=== PATIENT | female | born 1980 | race American Indian/Alaskan Native ===

== ENCOUNTER 2017-05-23 08:39 | Emergency (ER) | payer SELFPAY ==
[2017-05-23 09:26] VITALS: BP 132/82
[2017-05-23 10:23] LABS: Bacteria,Urine 1+ /HPF (Negative); Bilirubin,Urine NEG (Negative); Blood,Urine NEG (Negative); Ketones,Urine NEG (Negative); Leukocyte Esterase,Urine NEG (Negative); Mucus,Urine FEW /HPF; Nitrite,Urine NEG (Negative); Protein,Urine <15 mg/dL mg/dL (Negative); Urobilinogen,Urine < 2.0 mg/dL (<2.0); WBC,Urine < 1.0 /HPF (0.0-6.0)
[2017-05-23] MEDS ORDERED: TORADOL IM ONE (10:43)
--- NOTE | 2017-05-23 18:43 | Emergency Department Report ---
Entered by ZO LOERA, acting as scribe for KEILA WAGGONER NP. ED Back Pain/Injury HPI - General Chief Complaint: Back Pain/Injury Stated Complaint: LOW BACK/LT SIDE PAIN Time Seen by Provider: 05/23/17 10:01 Source: patient Limitations: No Limitations - History of Present Illness Initial Comments: This a 33 y/o female, nontoxic, well nourished in appearance, no acute signs of distress with a PMHx of HTN presents with c/o low back pain that began 3 days ago, worsening yesterday. Rates pain a 10/10 in severity, which she describes aching. Aggravated with movement and alleviated with immobilization. Reports the pain radiates to her right and left leg. Patient reports left side pain, but she denies urinary/bowel incontinence, dysuria, hematuria, fever, chills, chest pain, SOB, FREDERICK or dizziness, stiff neck, numbness, tingling. Notes Hx of similar intermittent back pain episodes, but she states this episode is worse. NKDA. Denies any trauma. Denies PMH. MD Complaint: back pain (low) Onset/Timin -: days(s) Similar Symptoms Previously: Yes Place: home Radiation: left leg, right leg Severity: severe Severity scale (0 -10): 10 Quality: aching Consistency: constant Improves With: immobilization Worsens With: movement Context: other (Hx intermittent back pain) Associated Symptoms: denies other symptoms. denies: confusion, weakness, chest pain, numbness, difficulty walking, cough, difficulty urinating, diaphoresis, incontinence, fever/chills, constipation, headaches, abdominal pain, loss of appetite, malaise, nausea/vomiting, rash, seizure, shortness of breath, syncope - Related Data Previous Rx's Medication Instructions Recorded Last Taken Type Metoprolol [Lopressor TAB] 12.5 mg PO DAILY #15 tablet 09/16/14 Unknown Rx Omeprazole Magnesium [Prilosec Otc] 20 mg PO QDAY #30 tablet. 09/16/14 Unknown Rx methylPREDNISolone [Medrol] 4 mg PO QAM #1 tab.ds.pk 06/28/16 Unknown Rx predniSONE [Deltasone] 50 mg PO QDAY #5 tab 06/28/16 Unknown Rx Ibuprofen [Motrin 600 MG tab] 600 mg PO Q8H PRN #20 tablet 05/23/17 Unknown Rx predniSONE [Deltasone] 20 mg PO BID #10 tab 05/23/17 Unknown Rx Allergies Allergy/AdvReac Type Severity Reaction Status Date / Time No Known Allergies Allergy Verified 09/15/14 13:59 ED Review of Systems Comment: All other systems reviewed and negative Constitutional: denies: chills, fever, malaise Eyes: denies: eye pain, eye discharge, vision change ENT: denies: ear pain, throat pain Respiratory: denies: cough, orthopnea, shortness of breath, SOB with exertion, SOB at rest, stridor, wheezing Cardiovascular: denies: chest pain, palpitations Endocrine: no symptoms reported Gastrointestinal: denies: abdominal pain, nausea, vomiting, diarrhea Genitourinary: denies: urgency, dysuria, frequency, hematuria, discharge Musculoskeletal: back pain (low back). denies: joint swelling, arthralgia Skin: denies: rash, lesions Neurological: denies: headache, weakness, numbness, paresthesias Psychiatric: denies: anxiety, depression Hematological/Lymphatic: denies: easy bleeding, easy bruising ED Past Medical Hx - Past Medical History Previous Medical History?: Yes Hx Hypertension: Yes - Surgical History Past Surgical History?: Yes Hx Cholecystectomy: Yes Hx Appendectomy: Yes Additional Surgical History: Tonsillectomy - Social History Smoking Status: Current Every Day Smoker Substance Use Type: Alcohol, Non Opiate Pain, Prescribed - Medications Home Medications: Home Medications Medication Instructions Recorded Confirmed Last Taken Type Metoprolol [Lopressor TAB] 12.5 mg PO DAILY #15 tablet 09/16/14 Unknown Rx Omeprazole Magnesium [Prilosec Otc] 20 mg PO QDAY #30 tablet.dr 09/16/14 Unknown Rx methylPREDNISolone [Medrol] 4 mg PO QAM #1 tab.ds.pk 06/28/16 Unknown Rx predniSONE [Deltasone] 50 mg PO QDAY #5 tab 06/28/16 Unknown Rx Ibuprofen [Motrin 600 MG tab] 600 mg PO Q8H PRN #20 tablet 05/23/17 Unknown Rx predniSONE [Deltasone] 20 mg PO BID #10 tab 05/23/17 Unknown Rx ED Physical Exam - General Limitations: No Limitations General appearance: alert, in no apparent distress - Head Head exam: Present: atraumatic, normocephalic, normal inspection - Eye Eye exam: Present: normal appearance, PERRL, EOMI. Absent: scleral icterus, conjunctival injection, nystagmus, periorbital swelling, periorbital tenderness Pupils: Present: normal accommodation - ENT ENT exam: Present: normal exam, normal orophraynx, mucous membranes moist, TM's normal bilaterally, normal external ear exam - Neck Neck exam: Present: normal inspection, full ROM. Absent: tenderness, meningismus, lymphadenopathy, thyromegaly - Respiratory Respiratory exam: Present: normal lung sounds bilaterally. Absent: respiratory distress, wheezes, rales, rhonchi, stridor, accessory muscle use, decreased breath sounds - Cardiovascular Cardiovascular Exam: Present: regular rate, normal rhythm, normal heart sounds. Absent: bradycardia, tachycardia, irregular rhythm, systolic murmur, diastolic murmur, rubs, gallop - GI/Abdominal GI/Abdominal exam: Present: soft, normal bowel sounds. Absent: distended, tenderness, guarding, rebound, rigid - Rectal Rectal exam: Present: deferred - Extremities Exam Extremities exam: Present: normal inspection, full ROM, normal capillary refill. Absent: tenderness, pedal edema, joint swelling, calf tenderness - Back Exam Back exam: Present: normal inspection, full ROM, tenderness (lumbar paraspinal tenderness), paraspinal tenderness (lumbar). Absent: CVA tenderness (R), CVA tenderness (L), muscle spasm, vertebral tenderness, rash noted - Neurological Exam Neurological exam: Present: alert, oriented X3, CN II-XII intact, normal gait, reflexes normal. Absent: motor sensory deficit - Psychiatric Psychiatric exam: Present: normal affect, normal mood - Skin Skin exam: Present: warm, dry, intact. Absent: rash ED Course Vital Signs 05/23/17 09:23 Temperature 98.1 F Pulse Rate 82 Respiratory 20 Rate Blood Pressure 132/82 O2 Sat by Pulse 100 Oximetry - Reevaluation(s) Reevaluation #1: 05/23/17 10:56 Patient is able to speak in full sentences with no signs of distress noted. ED Medical Decision Making - Medical Decision Making Ed course: This is a 37-year-old female that presents with lumbar strain 1- patient was examined by myself. UA has been obtained with normal findings. Negative CVA tenderness. Denies hx of kidney stones. Denies urinary symptoms. Symptoms are consistent with lumbar strain. Patient was treated in the ED with solu-medorl and toradol IM in the ED. Patient will be d/c with prednisone and ibuprofen. Patient was instructed to follow-up with her primary care doctor 3- 5 days or if symptoms such as numbness, tingling, fever, chills, stiff neck, nausea or vomiting chest pain, shortness of breath return to emergency room as soon as possible. At time time of discharge, the patient does not seem toxic or ill in appearance. No acute signs of distress noted. Patient agrees to discharge treatment plan of care. No further questions noted by the patient. ED Disposition Clinical Impression: Low back strain Qualifiers: Encounter type: initial encounter Qualified Code(s): S39.012A - Strain of muscle, fascia and tendon of lower back, initial encounter Disposition: TO HOME OR SELFCARE Is pt being admited?: No Does the pt Need Aspirin: No Condition: Stable Instructions: Ibuprofen (By mouth), Prednisone (By mouth), Muscle Strain (ED), Low Back Strain (ED) Additional Instructions: follow-up with your primary care doctor 3-5 days or if symptoms such as numbness , tingling, fever, chills, stiff neck, nausea or vomiting chest pain, shortness of breath return to emergency room as soon as possible. Take full course of prednisone and ibuprofen as prescribed. Prescriptions: Ibuprofen [Motrin 600 MG tab] 600 mg PO Q8H PRN #20 tablet PRN Reason: Pain predniSONE [Deltasone] 20 mg PO BID #10 tab Referrals: PRIMARY CARE, [Primary Care Provider] - 3-5 Days NANY FONG JR, MD [Staff Physician] - 3-5 Days [facility] [Outside] - 3-5 Days [facility] [Outside] - 3-5 Days HUSAM LAI MD [Staff Physician] - 3-5 Days Forms: Work/School Release Form(ED) This documentation as recorded by the EVARISTO guajardo JASMINE,accurately reflects the service I personally performed and the decisions made by ,KEILA WAGGONER, BHANU.
== END 2017-05-23 11:47 | disposition home or self-care (01) ==
LOC: ED 08:39
DX: S39.012A Strain of muscle, fascia and tendon of lower back, initial encounter (principal); I10 Essential (primary) hypertension; F17.210 Nicotine dependence, cigarettes, uncomplicated; X58.XXXA Exposure to other specified factors, initial encounter; Y93.89 Activity, other specified; Y92.89 Other specified places as the place of occurrence of the external cause; Y99.8 Other external cause status
CPT/HCPCS: 81001; 81025; 96372; 99283; J1885; J2920

== ENCOUNTER 2017-09-12 06:49 | Emergency (ER) | payer SELFPAY ==
[2017-09-12 07:13] VITALS: BP 139/88
== END 2017-09-12 12:33 ==
LOC: ED 06:49
DX: Z53.21 Procedure and treatment not carried out due to patient leaving prior to being seen by health care provider (principal)

== ENCOUNTER 2019-03-04 10:06 | Emergency (ER) | payer OTHER ==
[2019-03-04 10:24] VITALS: BP 172/108
--- NOTE | 2019-03-04 12:48 | Emergency Department Report ---
ED Fall HPI - General Chief Complaint: Fall Stated Complaint: FALL INJURY/PAIN Time Seen by Provider: 03/04/19 12:18 Source: patient Mode of arrival: Wheelchair - History of Present Illness Initial Comments: Is a 39-year-old obese female who presents to ED complaining of ground-level fall that happened this morning today while she was at [facility]. Patient states she slipped in fell on the ground was shopping at [facility]. Patient states she did not see watery spot on the floor and accidentally twisted. Patient states she landed on her leg and side. She denies any loss of consciousness or injury to the head. She denies nausea vomiting, chest pain, abdominal pain. Patient is complaining of right knee pain left-sided neck pain and lower back pain since the incident this morning. - Related Data Previous Rx's Medication Instructions Recorded Last Taken Type Metoprolol [Lopressor TAB] 12.5 mg PO DAILY #15 tablet 09/16/14 Unknown Rx Omeprazole Magnesium [Prilosec Otc] 20 mg PO QDAY #30 tablet. 09/16/14 Unknown Rx methylPREDNISolone [Medrol] 4 mg PO QAM #1 tab.ds.pk 06/28/16 Unknown Rx predniSONE [Deltasone] 50 mg PO QDAY #5 tab 06/28/16 Unknown Rx Ibuprofen [Motrin 600 MG tab] 600 mg PO Q8H PRN #20 tablet 05/23/17 Unknown Rx predniSONE [Deltasone] 20 mg PO BID #10 tab 05/23/17 Unknown Rx Metoclopramide [Reglan] 10 mg PO ACHS 7 Days #28 tablet 09/07/18 Unknown Rx Sulfamethoxazole/Trimethoprim 1 each PO BID #20 tablet 09/07/18 Unknown Rx [Bactrim DS TAB] diphenhydrAMINE [Benadryl CAP] 25 mg PO Q8HR 7 Days #28 capsule 09/07/18 Unknown Rx predniSONE [Deltasone] 40 mg PO DAILY 5 Days #10 tablet 09/07/18 Unknown Rx Cyclobenzaprine [Flexeril] 10 mg PO QHS PRN #20 tablet 03/04/19 Unknown Rx Ibuprofen [Ibuprofen 800] 800 mg PO TID PRN #30 tablet 03/04/19 Unknown Rx Allergies Allergy/AdvReac Type Severity Reaction Status Date / Time No Known Allergies Allergy Verified 09/07/18 17:01 ED Review of Systems ROS: Stated complaint: FALL INJURY/PAIN Other details as noted in HPI Comment: All other systems reviewed and negative ED Past Medical Hx - Past Medical History Hx Hypertension: Yes - Surgical History Hx Cholecystectomy: Yes Hx Appendectomy: Yes Additional Surgical History: Tonsillectomy - Social History Smoking Status: Current Some Day Smoker Substance Use Type: None - Medications Home Medications: Home Medications Medication Instructions Recorded Confirmed Last Taken Type Metoprolol [Lopressor TAB] 12.5 mg PO DAILY #15 tablet 09/16/14 Unknown Rx Omeprazole Magnesium [Prilosec Otc] 20 mg PO QDAY #30 tablet.dr 09/16/14 Unknown Rx methylPREDNISolone [Medrol] 4 mg PO QAM #1 tab.ds.pk 06/28/16 Unknown Rx predniSONE [Deltasone] 50 mg PO QDAY #5 tab 06/28/16 Unknown Rx Ibuprofen [Motrin 600 MG tab] 600 mg PO Q8H PRN #20 tablet 05/23/17 Unknown Rx predniSONE [Deltasone] 20 mg PO BID #10 tab 05/23/17 Unknown Rx Metoclopramide [Reglan] 10 mg PO ACHS 7 Days #28 tablet 09/07/18 Unknown Rx Sulfamethoxazole/Trimethoprim 1 each PO BID #20 tablet 09/07/18 Unknown Rx [Bactrim DS TAB] diphenhydrAMINE [Benadryl CAP] 25 mg PO Q8HR 7 Days #28 capsule 09/07/18 Unknown Rx predniSONE [Deltasone] 40 mg PO DAILY 5 Days #10 tablet 09/07/18 Unknown Rx Cyclobenzaprine [Flexeril] 10 mg PO QHS PRN #20 tablet 03/04/19 Unknown Rx Ibuprofen [Ibuprofen 800] 800 mg PO TID PRN #30 tablet 03/04/19 Unknown Rx ED Physical Exam - General Limitations: No Limitations General appearance: alert, in no apparent distress - Head Head exam: Present: atraumatic, normocephalic - Eye Eye exam: Present: normal appearance, EOMI Pupils: Present: normal accommodation - ENT ENT exam: Present: mucous membranes moist - Neck Neck exam: Present: normal inspection, tenderness (to palpation of the left trapezius muscles), full ROM. Absent: lymphadenopathy - Respiratory Respiratory exam: Present: normal lung sounds bilaterally. Absent: respiratory distress, wheezes - Cardiovascular Cardiovascular Exam: Present: regular rate, normal rhythm. Absent: systolic murmur, diastolic murmur, rubs, gallop - GI/Abdominal GI/Abdominal exam: Present: soft, normal bowel sounds - Extremities Exam Extremities exam: Present: normal inspection, full ROM, other (no swelling to the right knee, no bruising or ecchymoses noted). Absent: tenderness, joint swelling, calf tenderness - Back Exam Back exam: Present: normal inspection, full ROM, tenderness (to the palpation of the latissimus dorsi muscles). Absent: CVA tenderness (R), CVA tenderness (L) - Neurological Exam Neurological exam: Present: alert, oriented X3, normal gait - Psychiatric Psychiatric exam: Present: normal affect, normal mood - Skin Skin exam: Present: warm, dry, intact, normal color. Absent: rash ED Course Vital Signs 03/04/19 03/04/19 10:22 14:31 Temperature 97.7 F Pulse Rate 77 Respiratory 18 22 Rate Blood Pressure 172/108 [Left] O2 Sat by Pulse 100 Oximetry ED Medical Decision Making - Radiology Data Radiology results: report reviewed, image reviewed History: Neck pain. Findings: Mild degenerative disc disease is identified at C4-5 and C5-6. The vertebral bodies, posterior elements and prevertebral soft tissues are unremarkable. The dens is intact. No acute fracture or malalignment is identified. Impression: Mild cervical spondylosis. No evidence for acute injury to the cervical spine. Transcribed By: TTR Dictated By: NISH IBRAHIM JR, MD Electronically Authenticated By: NISH IBRAHIM JR, MD Signed Date/Time: 03/04/19 1349 RIGHT KNEE, 3 views: History: Pain. The bony architecture is intact without evidence of fracture or dislocation. No significant soft tissue abnormality is seen. IMPRESSION: Unremarkable right knee. Transcribed By: TTR Dictated By: NISH IBRAHIM JR, MD Electronically Authenticated By: NISH IBRAHIM JR, MD Signed Date/Time: 03/04/19 1348 cc: HANH JOHNSON Fluoro Time In Minutes: AP AND LATERAL LUMBOSACRAL SPINE: The vertebral bodies are well mineralized and normal in alignment and vertebral height with well preserved interspace distances. The visualized portions of the posterior elements are normal. IMPRESSION: Lumbar spine within normal limits. Transcribed By: TTR Dictated By: NISH IBRAHIM JR, MD Electronically Authenticated By: NISH IBRAHIM JR, MD Signed Date/Time: 03/04/19 5759 - Medical Decision Making 39-year-old female presents with myalgia due to this fall this morning. X-ray shows no acute findings Discussed findings with the patient. Discussed the patient to follow up with primary care physician. Orthopedics referral given to patient. Discuss follow-up within 3-5 days. Patient is able to ambulate without any problems. Vital signs are normal patient is in no acute distress. Critical care attestation.: If time is entered above; I have spent that time in minutes in the direct care of this critically ill patient, excluding procedure time. ED Disposition Clinical Impression: Fall, Arthralgia, Myalgia Disposition: TO HOME OR SELFCARE Is pt being admited?: No Does the pt Need Aspirin: No Condition: Stable Instructions: Trigger Point Pain (ED), Musculoskeletal Pain (ED), Knee Pain (ED), Arthralgia (ED), Knee Exercises (GEN) Additional Instructions: Make sure to follow up with the primary care physician as discussed. Take all your medications as you've been prescribed. If you have any worsening symptoms or develop new symptoms please return to ED immediately. Prescriptions: Cyclobenzaprine [Flexeril] 10 mg PO QHS PRN #20 tablet PRN Reason: Muscle Spasm Ibuprofen [Ibuprofen 800] 800 mg PO TID PRN #30 tablet PRN Reason: pain Referrals: [facility] MD TIFFANIE [Primary Care Provider] - 3-5 Days HUSAM LAI MD [Staff Physician] - 3-5 Days Forms: Accompanied Note, Work/School Release Form(ED) Time of Disposition: 14:29
--- NOTE | 2019-03-04 13:53 | XRay Report ---
RIGHT KNEE, 3 views: History: Pain. The bony architecture is intact without evidence of fracture or dislocation. No significant soft tissue abnormality is seen. IMPRESSION: Unremarkable right knee.
--- NOTE | 2019-03-04 13:54 | XRay Report ---
AP AND LATERAL LUMBOSACRAL SPINE: The vertebral bodies are well mineralized and normal in alignment and vertebral height with well preserved interspace distances. The visualized portions of the posterior elements are normal. IMPRESSION: Lumbar spine within normal limits.
--- NOTE | 2019-03-04 13:54 | XRay Report ---
CERVICAL SPINE, 3 views: History: Neck pain. Findings: Mild degenerative disc disease is identified at C4-5 and C5-6. The vertebral bodies, posterior elements and prevertebral soft tissues are unremarkable. The dens is intact. No acute fracture or malalignment is identified. Impression: Mild cervical spondylosis. No evidence for acute injury to the cervical spine.
[2019-03-04] MEDS ORDERED: TORADOL IM ONE (14:02)
== END 2019-03-04 14:47 | disposition home or self-care (01) ==
LOC: ED 10:06
DX: M25.561 Pain in right knee (principal); M54.2 Cervicalgia; M54.5 Low back pain; I10 Essential (primary) hypertension; F17.200 Nicotine dependence, unspecified, uncomplicated; Z90.49 Acquired absence of other specified parts of digestive tract; Z90.89 Acquired absence of other organs; Z79.899 Other long term (current) drug therapy; X50.1XXA Overexertion from prolonged static or awkward postures, initial encounter; Y93.01 Activity, walking, marching and hiking; Y92.512 Supermarket, store or market as the place of occurrence of the external cause; Y99.8 Other external cause status
CPT/HCPCS: 72040; 72100; 73560; 96372; 99283; J1885